=== PATIENT | male | born 1980 | race Caucasian/White ===

== ENCOUNTER 2023-06-29 05:49 | Emergency (ER) | payer BC, SELFPAY ==
[2023-06-29 06:02] VITALS: BP 115/87
--- NOTE | 2023-06-29 08:17 | ED.GENMED ---
History of Present Illness
General
Chief Complaint: Throat Problem
Source: patient
Exam Limitations: none
Time Seen by Provider: 06/29/23 08:03
Nursing documentation reviewed up to this point in time: agreed with
Travel History
Have you had any contact with someone who has COVID-19?: No
Do you have any symptoms of coronavirus? Fever > 100 degrees, chills, cough, shortness of breath, sore throat, loss of taste or smell, muscle aches, or headache?: No
History of Present Illness
History of Present Illness:
Patient presents to ED secondary to 4-day history of worsening sore throat, ear fullness sensation, fever, painful swallowing sensation, along with decreased appetite. Denies coughing. Denies headache. Denies difficulty swallowing. Denies
shortness of breath. Denies vomiting or diarrhea. Denies rash. Denies recent travel. Patient states that there are multiple family numbers who have had recent illness.
Past History
Past History
ED Past Medical History: None
ED Past Surgical History: None
Patient has exhibited threatening behavior?: No
Review of Systems
Review of Systems
Allergies reviewed?: Yes
All Other Systems: ROS reviewed and negative except as documented in HPI and ROS
Constitutional: Reports fever
EENT: Reports sore throat and other (Ear fullness)
Respiratory: Reports no symptoms; Denies trouble breathing
Musculoskeletal: Reports no symptoms
Skin: Reports no symptoms
Neurological: Reports no symptoms; Denies headache
Phy Exam
Physical Exam
Physical Exam:
Physical Exam
General: mild painful distress, not acutely ill. afebrile
Head: nc/at. eomi
Neck: supple. normal range of motion. right anterior cervical lymphadenopathy noted. right tonsil enlargement noted, without obvious exudate. Uvula midline.
Abdomen: normal bowel sounds. not tender.
Neuro: alert and oriented. no focal neurological deficits
Skin: no rash
Psychiatric: well kept. interactive and cooperative
Extremities: no edema. no calf tenderness.
Course
Orders/Labs/Results
Orders:
Orders
06/29/23 08:17
Amoxicillin [Amoxil] 500 mg PO NOW STA
Dexamethasone Pf [Decadron] 10 mg PO NOW STA
Ibuprofen [Motrin] 400 mg PO NOW STA
Vital Signs
Initial and Last Documented VS:
Initial Vital Signs
Temp Pulse Resp BP Pulse Ox
100.3 F 88 19 115/87 98
06/29/23 06:02 06/29/23 06:02 06/29/23 06:02 06/29/23 06:02 06/29/23 06:02
Last Documented Vital Signs
Temp Pulse Resp BP Pulse Ox
100.3 F 90 16 127/83 96
06/29/23 06:02 06/29/23 09:09 06/29/23 09:09 06/29/23 09:09 06/29/23 09:09
MDM/Problems Addressed
MDM/Problems Addressed:
History exam consistent with likely acute tonsillitis. Based on Centor's criteria, no indication for throat swab at this time. Patient will be treated empirically with amoxicillin, along with PCP follow-up as an outpatient.
*Critical Care Note
Total Time (30-74mins, 75-104mins- exclusive of procedures): Not Applicable
ED Attending Note
-
Portions of this chart may have been created with voice recognition software.� Occasional wrong word or��sound alike� substitutions may have occurred due to the inherent limitations of voice recognition software.
Discharge Plan
Departure
Patient Disposition: Home (Routine Discharge)
Date of Disposition: 06/29/23
Time of Disposition: 08:45
Patient with high blood pressure during this ER visit?: Yes
Condition: Good
Discharge Problem:
Acute tonsillitis
Instructions: Sore Throat, Adult (DC)
Prescriptions:
New
amoxicillin 500 mg capsule
500 mg PO TID Qty: 30 0RF
Referrals:
Abigail Jacome, DO [Family Provider] -
Activity Restrictions/Additional Instructions:
As discussed, please follow-up with your primary care physician for re-evaluation. Your prescription has been sent electronically to [facility] in [place].
Interventions
Interventions:
*Risk Screen - Suicide Last Done: 06/29/23 06:02
*General Assessment Last Done: 06/29/23 06:02
*Neglect/Abuse Screening Last Done: 06/29/23 06:02
ED- Fall Risk Assessment Last Done: 06/29/23 09:14
*ED COVID-19 Vaccine History Last Done: 06/29/23 06:02
*Nursing Disposition Last Done: 06/29/23 09:14
ED-EENT Assessment Last Done: 06/29/23 09:09
ED- Pulmonary Assessment Last Done: 06/29/23 09:09
Discharge Date and Time
Discharge Date/Time: 06/29/23 09:15
Print Language: KAZAKH
[2023-06-29] MEDS: MOTRIN 400 MG PO (08:34)
[2023-06-29] MEDS: AMOXIL 500 MG PO (08:34)
[2023-06-29] MEDS: DECADRON 10 MG PO (08:35)
[2023-06-29 09:09] VITALS: BP 127/83
== END 2023-06-29 09:15 | disposition home or self-care (01) ==
LOC: EMR 05:49
PROVIDERS: EMERGENCY PHYSICIAN Emergency Medicine; FAMILY PHYSICIAN Family Medicine
DX: J03.90 Acute tonsillitis, unspecified (principal); R03.0 Elevated blood-pressure reading, without diagnosis of hypertension
CPT/HCPCS: 99283

== ENCOUNTER 2023-10-13 17:58 | Emergency (ER) | payer SELFPAY ==
[2023-10-13 17:59] VITALS: BP 130/77
[2023-10-13 18:00] VITALS: BP 130/77
--- NOTE | 2023-10-13 19:46 | ED.GENMED ---
History of Present Illness
General
Chief Complaint: Musculo-Skeletal Complaint
Time Seen by Provider: 10/13/23 18:18
History of Present Illness
History of Present Illness:
42-year-old male presents the emergency department for evaluation of a left middle finger injury. Finger was caught in a machine and while attempting to remove it he became dizzy and lightheaded and had a witnessed syncopal event. Arrives by EMS.
Currently feels well with no complaints. No chest pain or shortness of breath.
Past History
Past History
ED Past Medical History: None
ED Past Surgical History: None
Patient has exhibited threatening behavior?: No
Review of Systems
Review of Systems
Allergies reviewed?: Yes
All Other Systems: ROS reviewed and negative except as documented in HPI and ROS
Phy Exam
Physical Exam
Physical Exam:
GEN: Well appearing, NAD, WDWN
HEENT: Oral mucosa moist, no scleral icterus
Cardiac: Regular rate and rhythm, no murmur
Lung: No respiratory distress, no tachypnea
MSK: Bruising and swelling to the distal aspect of the left middle finger
Skin: Good color, no pallor or jaundice, no rashes
Neuro: AO x3, moves all extremities freely
Psych: Calm, cooperative
Course
Orders/Labs/Results
Orders:
Orders
10/13/23 18:21
CR Finger(s)/thumb Min 2 Vw Lt Urgent
Comment:
Reason For Exam: crush injury L middle finger
Vital Signs
Initial and Last Documented VS:
Initial Vital Signs
Temp Pulse Resp BP Pulse Ox
98.2 F 86 16 130/77 96
10/13/23 17:59 10/13/23 17:59 10/13/23 17:59 10/13/23 17:59 10/13/23 17:59
Last Documented Vital Signs
Temp Pulse Resp BP Pulse Ox
98.2 F 89 17 130/77 96
10/13/23 17:59 10/13/23 18:00 10/13/23 18:00 10/13/23 18:00 10/13/23 17:59
MDM/Problems Addressed
MDM/Problems Addressed:
EKG independently interpreted by me shows normal sinus rhythm with no arrhythmias or ST changes. Patient's x-rays reveal a nondisplaced tuft fracture as well as a small avulsion fracture of the dorsal plate of the distal phalanx suggesting an
extensor tendon injury. Patient is placed in an extensor splint with lavelle tape and recommend outpatient hand surgery follow-up. From a syncopal standpoint this was clearly a vasovagal event and his EKG is unremarkable, no work restrictions
necessary for this
*Critical Care Note
Total Time (30-74mins, 75-104mins- exclusive of procedures): Not Applicable
ED Attending Note
-
Portions of this chart may have been created with voice recognition software.� Occasional wrong word or��sound alike� substitutions may have occurred due to the inherent limitations of voice recognition software.
Discharge Plan
Departure
Patient Disposition: Home (Routine Discharge)
Date of Disposition: 10/13/23
Time of Disposition: 19:46
Patient with high blood pressure during this ER visit?: No
Discharge Problem:
Closed fracture of phalanx of left middle finger
Instructions: Finger Fracture ED
Prescriptions:
No Action
amoxicillin 500 mg capsule
500 mg PO TID Qty: 30 0RF
Referrals:
Dante Adamson MD [Active] - Call in 1-3 days for appt
Abigail Jacome DO [Family Provider] -
Stand Alone Forms: Return to Work
Interventions
Interventions:
*Risk Screen - Suicide Last Done: 10/13/23 17:59
*General Assessment Last Done: 10/13/23 17:59
*Neglect/Abuse Screening Last Done: 10/13/23 17:59
ED- Fall Risk Assessment Last Done: 10/13/23 18:03
*Nursing Disposition Last Done: 10/13/23 19:58
ED-Musculoskeletal Assessment Last Done: 10/13/23 18:03
Discharge Date and Time
Discharge Date/Time: 10/13/23 20:10
Print Language: TRISTANIAN
== END 2023-10-13 20:10 | disposition home or self-care (01) ==
LOC: EMR 17:58
PROVIDERS: EMERGENCY PHYSICIAN Emergency Medicine; FAMILY PHYSICIAN Family Medicine
DX: R55 Syncope and collapse (principal); S62.633A Displaced fracture of distal phalanx of left middle finger, initial encounter for closed fracture; S60.032A Contusion of left middle finger without damage to nail, initial encounter; S67.193A Crushing injury of left middle finger, initial encounter; Y93.89 Activity, other specified; Y92.89 Other specified places as the place of occurrence of the external cause; Y99.0 Civilian activity done for income or pay
CPT/HCPCS: 99283; 73140; 93005